=== PATIENT | female | born 1975 | race Caucasian/White ===

== ENCOUNTER 2021-05-01 16:50 | Outpatient (CLI) | payer SELFPAY | END 2021-05-01 16:51 | disposition critical access hospital (66) | LOC: EMS 16:50 | DX: S61.411A Laceration without foreign body of right hand, initial encounter (principal); S59.911A Unspecified injury of right forearm, initial encounter; V89.2XXA Person injured in unspecified motor-vehicle accident, traffic, initial encounter; Y93.89 Activity, other specified; Y92.410 Unspecified street and highway as the place of occurrence of the external cause | CPT/HCPCS: A0425; A0429 ==

== ENCOUNTER 2021-05-01 17:42 | Emergency (ER) | payer SELFPAY ==
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
[2021-05-01] MEDS ORDERED: HYDROcod/ACETAM 5/325 MG TABLET PO STA (19:13)
[2021-05-01] MEDS ORDERED: TETANUS/DIPHTHERIA/PERTUSSIS 0.5 ML SYRINGE IM ONE (19:13)
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
[2021-05-01 20:36] VITALS: BP 122/77
== END 2021-05-01 20:42 | disposition home or self-care (01) ==
LOC: ED 17:42
DX: S62.336A Displaced fracture of neck of fifth metacarpal bone, right hand, initial encounter for closed fracture (principal); S60.419A Abrasion of unspecified finger, initial encounter; M25.531 Pain in right wrist; V53.5XXA Driver of pick-up truck or van injured in collision with car, pick-up truck or van in traffic accident, initial encounter; Y92.410 Unspecified street and highway as the place of occurrence of the external cause; Z23 Encounter for immunization; F17.200 Nicotine dependence, unspecified, uncomplicated
CPT/HCPCS: 29125; 36415; 73110; 73130; 90471; 90715; 99283; 99284; A9270